=== PATIENT | female | born 1990 | race African-American/Black ===

== ENCOUNTER 2020-05-28 01:49 | Emergency (ER) | payer MEDICAID ==
[~2020-05-28] VITALS: Ht 167.6 cm; Wt 59.1 kg
[2020-05-28 02:27] LABS: APPEARANCE,URINE CLOUDY (CLEAR); BILIRUBIN,URINE NEGATIVE (NEGATIVE); GLUCOSE, URINE (UA) NEGATIVE (NEGATIVE); KETONES,URINE NEGATIVE (NEGATIVE); LEUKOCYTE ESTERASE ,URINE MODERATE (NEGATIVE); NITRATE,URINE NEGATIVE (NEGATIVE); OCCULT BLOOD,URINE TRACE (NEGATIVE); PH,URINE 5.5 (5.0-8.0); PROTEIN,URINE NEGATIVE (NEGATIVE); UROBILINOGEN,URINE 0.2 mg/dL (<=1.0)
[2020-05-28] MEDS ORDERED: LIDOCAINE 1% 10 ML VIAL INJ ONE (02:30)
[2020-05-28 02:35] LABS: BACTERIA,URINE Few /HPF (None Seen); RBC,URINE 0-2 /HPF (0-2); SQUAMOUS EPITHELIAL CELL,UR Few /LPF (None Seen)
[2020-05-28 03:30] VITALS: BP 140/80
[2020-05-28] MEDS ORDERED: IBUPROFEN 800 MG TABLET PO ONE (03:30)
== END 2020-05-28 03:38 | disposition home or self-care (01) ==
LOC: EMS 01:49
DX: N76.4 Abscess of vulva (principal); Z88.0 Allergy status to penicillin
CPT/HCPCS: 56405; 81001; 84703; 99284; J3490

== ENCOUNTER 2024-03-28 03:12 | Emergency (ER) | payer MEDICAID, OTHER ==
[~2024-03-28] VITALS: Ht 160 cm; Wt 61.4 kg
[2024-03-28 03:38] VITALS: BP 135/77; PULSE 90; RESP 18; TEMP 98.2; O2SAT 100
[2024-03-28] MEDS: CefTRIAXone 1 GM/DEXTROSE 50 ML IV ONE (06:48)
[2024-03-28] MEDS: DiphenhydrAMINE HCL 50 MG/ML VIAL IVP ONE (06:48)
[2024-03-28] MEDS ORDERED: IBUP-1492 PO (07:51)
[2024-03-28] MEDS ORDERED: PERCT PO (07:51)
== END 2024-03-28 08:14 | disposition home or self-care (01) ==
LOC: EMS 03:12
DX: S00.502A Unspecified superficial injury of oral cavity, initial encounter (principal); Z88.0 Allergy status to penicillin; X58.XXXA Exposure to other specified factors, initial encounter; Y93.89 Activity, other specified; Y92.89 Other specified places as the place of occurrence of the external cause; Y99.8 Other external cause status
CPT/HCPCS: 99284; 96365; 96375; J0696; J1200

== ENCOUNTER 2025-07-29 01:50 | Emergency (ER) | payer OTHER ==
[~2025-07-29] VITALS: Ht 162.6 cm; Wt 59.1 kg
[~2025-07-29 01:50] MED LIST: IBUP-1492 PO; PERCT PO
[2025-07-29 01:57] VITALS: TEMP 97.5
[2025-07-29] MEDS ORDERED: SULF1TAB94 PO (02:42)
[2025-07-29] MEDS ORDERED: ERYT250C70 PO (02:42)
[2025-07-29] MEDS: SULFAMETHOX/TRIMETH DS 800-160 MG/TABLET PO ONE (02:56)
[2025-07-29] MEDS: IBUPROFEN 600 MG TABLET PO ONE (02:56)
[2025-07-29] MEDS: ERYTHROMYCIN BASE 500 MG TABLET PO ONE (02:57)
[2025-07-29 03:07] VITALS: BP 118/83; PULSE 86; RESP 18; O2SAT 100
== END 2025-07-29 03:11 | disposition home or self-care (01) ==
LOC: EMS 02:00
DX: L03.211 Cellulitis of face (principal); L02.01 Cutaneous abscess of face; Z79.1 Long term (current) use of non-steroidal anti-inflammatories (NSAID); Z88.0 Allergy status to penicillin
CPT/HCPCS: 99284; Z7502; Z7610